=== PATIENT | female | born 1995 | race Caucasian/White ===

== ENCOUNTER 2018-05-13 17:43 | Emergency (ER) | payer BC ==
[~2018-05-13] VITALS: Ht 177.8 cm; Wt 74.8 kg
[2018-05-13 18:46] LABS: BASOPHILS # (AUTO) 0.1 /CMM (0.0-0.2); BASOPHILS % (AUTO) 1.2 % (0.0-2.0); EOSINOPHILS % (AUTO) 0.3 % (0.0-6.0); HEMATOCRIT 39 % (33-45); HEMOGLOBIN 13.4 g/dL (11.5-14.8); LYMPHOCYTES # (AUTO) 2.1 /CMM (0.8-4.8); LYMPHOCYTES % (AUTO) 29.5 % (20.0-44.0); MEAN CORPUSCULAR HGB CONC 34 g/dl (31.0-36.0); MEAN CORPUSCULAR VOLUME 92 fL (82-100); MONOCYTES # (AUTO) 0.7 /CMM (0.1-1.30); MONOCYTES % (AUTO) 9.8 % (2.0-12.0); NEUTROPHILS # (AUTO) 4.3 /CMM (1.8-8.9); NEUTROPHILS % (AUTO) 59.2 % (43.0-81.0); PLATELET COUNT (AUTO) 402 /CMM (150-450); RDW COEFFICIENT OF VARIATION 12.6 (11.5-15.0); RED BLOOD CELL COUNT(AUTO) 4.27 MIL/uL (4.0-5.2); WHITE BLOOD COUNT (AUTO) 7.2 K/uL (4.3-11.0)
[2018-05-13 18:56] LABS: CALCIUM, SERUM 9.4 mg/dL (8.5-10.1); CARBON DIOXIDE 27 mmol/L (21-32); CHLORIDE 105 mmol/L (98-107); CREATININE 0.8 mg/dL (0.6-1.3); GLUCOSE 70 mg/dL (74-106); POTASSIUM 4.5 mmol/L (3.5-5.1); SODIUM SERUM 141 mmol/L (136-145); UREA NITROGEN, BLOOD 9 mg/dL (7-18)
[2018-05-13 19:12] LABS: ALANINE AMINOTRANSFERASE 15 U/L (12-78); ALBUMIN 4.6 g/dL (3.4-5.0); ALCOHOL, BLOOD 32 mg/dL (0-0); ALKALINE PHOSPHATASE 85 U/L (46-116); ASPARTATE AMINOTRANSFERASE 15 U/L (15-37); BILIRUBIN,DIRECT 0.1 mg/dL (0.0-0.2); BILIRUBIN,TOTAL 0.6 mg/dL (0.2-1.0); SALICYLATE 4.2 mg/dL (2.8-20.0); TOTAL PROTEIN, SERUM 8.4 g/dL (6.4-8.2)
[2018-05-13 19:13] LABS: ACETAMINOPHEN < 2 ug/ml (10-30)
--- NOTE | 2018-05-13 19:50 | NUR ---
URINE COLLECTED. CALLED LAB FOR DRIER AND GRINDER TENDER
[2018-05-13 20:15] LABS: APPEARANCE,URINE Clear (CLEAR); BILIRUBIN,URINE Negative (NEGATIVE); BLOOD, URINE Trace-intact Ery/uL (NEGATIVE); COLOR,URINE Yellow (YELLOW); KETONES,URINE 15 (NEGATIVE); LEUKOCYTE ESTERASE ,URINE Negative (NEGATIVE); NITRITE, URINE Negative (NEGATIVE); PROTEIN,URINE Negative (NEGATIVE); UGLUCOSE Negative (NEGATIVE); UROBILINOGEN,URINE 0.2 EU/dL (0.2)
[2018-05-13 20:33] LABS: BACTERIA,URINE Few /HPF (None Seen); RBC,URINE 0-2 /HPF (0-2); SQUAMOUS EPITHELIAL CELL,UR Rare /HPF (None Seen); WBC,URINE 0-2 /HPF (0-3)
--- NOTE | 2018-05-13 20:55 | NUR ---
ASSUMED CARE OF PT AT THIS TIME. PT AWAKE TALKING TO MOTHER. STATES "I FEEL A LOT BETTER". DENIES ANY NEW OR WORSENING SX'S AT THIS TIME. RESP EVEN AND UNLABORED. CARE PLAN DISCUSSED.
--- NOTE | 2018-05-13 22:00 | NUR ---
MICHELE/RN/OPERATING ROOM ORDERLY AT BEDSIDE.
--- NOTE | 2018-05-13 23:19 | NUR ---
AWAITING ACCEPTANCE FROM [facility]. MOTHER AT BEDSIDE. SANDWICH AND JUICE PROVIDED.
--- NOTE | 2018-05-14 00:08 | NUR ---
PT ACCEPTED AT [facility] UNDER DR. FARMER.
--- NOTE | 2018-05-14 00:17 | NUR ---
CALLED [facility] FOR TRANSPORT. 120 MIN ETA. TRIP #: [id number]
--- NOTE | 2018-05-14 00:44 | NUR ---
REPORT GIVEN TO KRISHAN/RN AT [facility].
--- NOTE | 2018-05-14 02:16 | NUR ---
REPORT GIVEN TO [facility]ITO/EMT TEAM. PT TO BE TRANSPORTED TO [facility].
[2018-05-14 02:18] VITALS: BP 113/68
== END 2018-05-14 02:44 ==
LOC: ER 17:45
DX: R45.851 Suicidal ideations (principal); F32.9 Major depressive disorder, single episode, unspecified
CPT/HCPCS: 36415; 80048; 80076; 80305; 80329; 81001; 84703; 85025; 99285; A4606; G0480 ×2; Z7610; 81000-TC